=== PATIENT | female | born 1950 | race Caucasian/White ===

== ENCOUNTER 2022-03-25 11:00 | Outpatient (CLI) | payer OTHER | END 2022-03-25 11:01 | disposition home or self-care (01) | LOC: CSHMAMMO 11:00 | PROVIDERS: ATTEND Family Medicine | DX: Z12.31 Encounter for screening mammogram for malignant neoplasm of breast (principal); Z91.89 Other specified personal risk factors, not elsewhere classified; Z80.3 Family history of malignant neoplasm of breast | CPT/HCPCS: 77063; 77067 ==

== ENCOUNTER 2024-04-13 10:26 | Outpatient (CLI) | payer MEDICARE | END 2024-04-13 10:27 | disposition home or self-care (01) | LOC: CSHMAMMO 10:26 | PROVIDERS: ATTEND Family Medicine | DX: Z12.31 Encounter for screening mammogram for malignant neoplasm of breast (principal); Z80.3 Family history of malignant neoplasm of breast; Z91.89 Other specified personal risk factors, not elsewhere classified | CPT/HCPCS: 77063; 77067 ==